=== PATIENT | female | born 1990 | race Hispanic/Latino ===

== ENCOUNTER 2018-01-28 22:02 | Outpatient (CLI) | payer OTHER ==
[2018-01-28] MEDS ORDERED: LACTATED RINGERS 500 ML IV ONE (22:23)
[2018-01-28] MEDS ORDERED: BRETHINE ONE (23:17)
[2018-01-29 00:20] VITALS: BP 115/68
== END 2018-01-29 01:15 | disposition home or self-care (01) ==
LOC: TRG 22:02
PROVIDERS: ATTEND Obstetrics & Gynecology
DX: O47.03 False labor before 37 completed weeks of gestation, third trimester (principal); O62.8 Other abnormalities of forces of labor; Z3A.33 33 weeks gestation of pregnancy
CPT/HCPCS: 59025; 96372; J3105; J7120; 96360

== ENCOUNTER 2018-02-11 20:18 | Inpatient (IN) | payer OTHER ==
[2018-02-11] MEDS ORDERED: LACTATED RINGERS 1,000 ML ONE (20:54)
[2018-02-11] MEDS ORDERED: XYLOCAINE 2% INFILTRATI ONE (22:08)
[2018-02-11] MEDS ORDERED: MINERAL OIL PO PRN (22:08)
[2018-02-11] MEDS ORDERED: BRETHINE SUB-Q PRN (22:08)
[2018-02-11] MEDS ORDERED: SUBLIMAZE IV PRN (22:08)
[2018-02-11] MEDS ORDERED: ZOFRAN IV PRN (22:08)
--- NOTE | 2018-02-11 22:27 | History and Physical Report ---
History of Present Illness Date of examination: 02/11/18 (PTL @ 35.4 weeks) History of present illness: EDC Confirmation: 03/15/2018 Gestational Age: 7 1/7 weeks Past History : 3 Term Births: 2 Living Children: 2 Para: 2 # 1 Delivery date: 06/17/2011 Weeks Gestation: 38 Delivery type: Vaginal Anesthesia type: epidural Delivery location: [facility] Infant Sex: female weight: 8.25 Comments: none # 2 Delivery date: 02/27/2013 Weeks Gestation: 36 Delivery type: Vaginal Anesthesia type: epidural Delivery location: [facility] Infant Sex: female weight: 611 Comments: Past Medical History: Reviewed history from 11/30/2016 and no changes required: Negative Past Medical History MVP Anxiety Past Surgical History: Reviewed history from 11/03/2010 and no changes required: positive, [id number],10yo,14yo Past Medical History Abnormal PAP: negative ARSENIO Exposure: negative Infertility: negative Uterine Anomaly: negative Uterine Surgery (not C/S): negative Other Gynecologic Problems: negative Social Hx: Patient is Smoking History: Patient has never smoked. Infection History Hx of STD: none Varicella/Chicken Pox Status: Previous Disease Genetic History Congenital Heart Defect: Mom: no Dad: no Gudelia Disease: Mom: no Dad: no Thalassemia Mom: no Dad: no Neural Tube Defect Mom: no Dad: no Down's Syndrome Mom: no Dad: no Samuel-Sachs Mom: no Dad: no Sickle Cell Disease/Trait Mom: no Dad: no Hemophilia Mom: no Dad: no Muscular Dystrophy Mom: no Dad: no Cystic Fibrosis Mom: no Dad: no [place] Chorea Mom: no Dad: no Mental Retardation Mom: no Dad: no Fragile X Mom: no Dad: no Other Genetic/Chromosomal Disorder Mom: no Dad: no Child w/other defect Mom: no Dad: no Other: brother had cleft palate Enviromental Exposures Xray Exposure: no Medication, drug, or alcohol use since LMP: no Chemical/Other Exposure: no Exposure to Cat Liter: no Hx of Parvovirus (Fifth Disease): no Occupational Exposure to Children: none Active Medications (reviewed today): None Current Allergies (reviewed today): CODEINE (Critical) Past History - Obstetrical History Expected Date of Delivery: 03/15/18 Actual Gestation: 35 Week(s) 3 Day(s) : 3 Para: 2 Hx # Term Pregnancies: 1 Number of Pregnancies: 1 Spontaneous Abortions: 0 Induced : 0 Number of Living Children: 2 Medications and Allergies Allergies Allergy/AdvReac Type Severity Reaction Status Date / Time codeine AdvReac Unknown Verified 01/28/18 22:23 Home Medications Medication Instructions Recorded Confirmed Last Taken Type No Known Home Medications [No 02/28/13 02/28/13 Unknown History Reported Home Medications] Active Meds: Active Medications Betamethasone Acet/Betameth SodPhos (Celestone Soluspan) 12 mg IM Q24H HOLLI Stop: 02/12/18 23:01 Ephedrine Sulfate (Ephedrine Sulfate) 10 mg IV Q2M PRN PRN Reason: Hypotension Fentanyl (Sublimaze) 100 mcg IV Q2H PRN PRN Reason: Labor Pain Lactated Ringer's (Lactated Ringers) 1,000 mls @ 125 mls/hr IV DIRECT HOLLI Oxytocin/Sodium Chloride (Pitocin/Ns 20 Unit/1000ml Drip) 20 units in 1,000 mls @ 125 mls/hr IV DIRECT HOLLI Mineral Oil (Mineral Oil) 30 ml PO QHS PRN PRN Reason: Constipation Ondansetron HCl (Zofran) 4 mg IV Q8H PRN PRN Reason: Nausea And Vomiting Terbutaline Sulfate (Brethine) 0.25 mg SUB-Q ONCE PRN PRN Reason: Hyperstimulation/Hypertonicity - Vital Signs Vital signs: Vital Signs Pulse BP 97 H 130/79 02/11/18 20:33 02/11/18 20:33 Temp Pulse Resp BP Pulse Ox 88 129/78 02/11/18 22:15 02/11/18 22:15 - Physical Exam Breasts: Positive: deferred Cardiovascular: Regular rate, Normal S1, Normal S2 Lungs: Positive: Normal air movement Abdomen: Positive: normal appearance, soft, normal bowel sounds. Negative: distention, tenderness Genitourinary (Female): Positive: normal external genitalia Vulva: both: normal Vagina: Positive: normal moisture. Negative: discharge Cervix: Negative: lesion, discharge Uterus: Positive: normal size, normal contour Adnexa: both: normal Anus/Rectum: Positive: normal perianal skin, heme negative. Negative: rectal mass, hemorrhoids Extremities: Positive: normal Deep Tendon Reflex Grade: Normal +2 - Obstetrical FHR: category 1 Uterine Contraction Monitor Mode: External Cervical Dilatation: 3.5 (cervical chg from arrival) Cervical Effacement Percentage: 70 station: -2 Uterine Contraction Frequency (min): q1-4 Uterine Contraction Pattern: Regular Uterine Tone Measurement Phase: Resting Uterine Contraction Intensity: Moderate Results All other labs normal. Strep Gp B REHAN Negative HBsAg Screen Negative Negative *1 RPR Non Reactive Non Reactive *2 Rubella Antibodies, IgG 8.13 index Immune >0.99 *3 Non-immune <0.90 Equivocal 0.90 - 0.99 Immune >0.99 ABO Grouping B *4 Rh Factor Positive *5 Please note: Prior records for this patient's ABO / Rh type are not available for additional verification. Antibody Screen Negative Negative *6 WBC 7.8 x10E3/uL 3.4-10.8 *7 RBC 4.22 x10E6/uL 3.77-5.28 *8 Hemoglobin 12.5 g/dL 11.1-15.9 *9 Hematocrit 37.7 % 34.0-46.6 *10 MCV 89 fL 79-97 *11 MCH 29.6 pg 26.6-33.0 *12 MCHC 33.2 g/dL 31.5-35.7 *13 RDW 14.5 % 12.3-15.4 *14 Platelets 186 x10E3/uL 150-379 *15 Neutrophils 70 % Not Estab. *16 Lymphs 24 % Not Estab. *17 Monocytes 5 % Not Estab. *18 Eos 1 % Not Estab. *19 Basos 0 % Not Estab. *20 ! Immature Cells <No Reported Value> *21 Neutrophils (Absolute) 5.4 x10E3/uL 1.4-7.0 *22 Lymphs (Absolute) 1.9 x10E3/uL 0.7-3.1 *23 Monocytes(Absolute) 0.4 x10E3/uL 0.1-0.9 *24 Eos (Absolute) 0.0 x10E3/uL 0.0-0.4 *25 Baso (Absolute) 0.0 x10E3/uL 0.0-0.2 *26 ! Immature Granulocytes 0 % Not Estab. *27 ! Immature Grans (Abs) 0.0 x10E3/uL 0.0-0.1 *28 ! NRBC <No Reported Value> *29 Hematology Comments: <No Reported Value> *30 Tests: (2) Panel 935177 (060105) HIV Screen 4th Generation wRfx Non Reactive Non Reactive *31 Tests: (3) HCV Ab w/Rflx to Verification (380393) ! HCV Ab <0.1 s/co ratio 0.0-0.9 *32 Tests: (4) Comment: ([id number]) ! Comment: SPRCS *33 Non reactive HCV antibody screen is consistent with no HCV infection, unless recent infection is suspected or other evidence exists to indicate HCV infection. Tests: (5) Urine Culture, Routine (669275) Urine Culture, Routine Final report *34 Tests: (6) Result ([id number]) ! Result 1 "Result Below..." *35 RESULT: Lactobacillus species 25,000-50,000 colony forming units per mL Assessment and Plan - Patient Problems (1) labor Onset Date: ~02/11/18 Current Visit: Yes Status: Acute Qualifiers: labor trimester: third trimester Fetus number: single or unspecified fetus Plan to address problem: 27yo @ 35w3d in active labor Cervical change from admission from 2cm to 3-4 cm. Ctx Q 1-4 min GBS negative BMZ ordered NICU notified aware of admission Orders in EMR
[2018-02-11] MEDS ORDERED: CELESTONE SOLUSPAN IM SCH (23:00)
[2018-02-11] MEDS ORDERED: LACTATED RINGERS 1,000 ML IV SCH (23:00)
[2018-02-11] MEDS ORDERED: PITOCin/NS 20 UNIT/1000ML DRIP 20 UNITS/1,000 ML BAG IV SCH (23:00)
[2018-02-12] MEDS ORDERED: AMBIEN PO PRN (00:13)
--- NOTE | 2018-02-12 00:16 | Progress Note ---
Assessment and Plan Pt states ctx are less freq and decreasing intensity Cat 1 strip Reactive NST Will continue IVFs, encourage po fluids, Ambien to rest and re-eval in AM or as needed. Pt agrees with POC All questions addressed. - Patient Problems (1) labor Onset Date: ~02/11/18 Current Visit: Yes Status: Acute Qualifiers: labor trimester: third trimester Fetus number: single or unspecified fetus Subjective - Subjective Date of service: 02/12/18 (pt states ctx are decreasing frequency) Principal diagnosis: IUP @ 35w4d in PTL Interval history: EDC Confirmation: 03/15/2018 Gestational Age: 7 1/7 weeks Past History : 3 Term Births: 2 Living Children: 2 Para: 2 # 1 Delivery date: 06/17/2011 Weeks Gestation: 38 Delivery type: Vaginal Anesthesia type: epidural Delivery location: [facility] Sex: female weight: 8.25 Comments: none # 2 Delivery date: 02/27/2013 Weeks Gestation: 36 Delivery type: Vaginal Anesthesia type: epidural Delivery location: [facility] Infant Sex: female weight: 611 Comments: Past Medical History: Reviewed history from 11/30/2016 and no changes required: Negative Past Medical History MVP Anxiety Past Surgical History: Reviewed history from 11/03/2010 and no changes required: positive, [id number],10yo,14yo Past Medical History Abnormal PAP: negative ARSENIO Exposure: negative Infertility: negative Uterine Anomaly: negative Uterine Surgery (not C/S): negative Other Gynecologic Problems: negative Social Hx: Patient is Smoking History: Patient has never smoked. Infection History Hx of STD: none Varicella/Chicken Pox Status: Previous Disease Genetic History Congenital Heart Defect: Mom: no Dad: no Gudelia Disease: Mom: no Dad: no Thalassemia Mom: no Dad: no Neural Tube Defect Mom: no Dad: no Down's Syndrome Mom: no Dad: no Samuel-Sachs Mom: no Dad: no Sickle Cell Disease/Trait Mom: no Dad: no Hemophilia Mom: no Dad: no Muscular Dystrophy Mom: no Dad: no Cystic Fibrosis Mom: no Dad: no [place] Chorea Mom: no Dad: no Mental Retardation Mom: no Dad: no Fragile X Mom: no Dad: no Other Genetic/Chromosomal Disorder Mom: no Dad: no Child w/other defect Mom: no Dad: no Other: brother had cleft palate Enviromental Exposures Xray Exposure: no Medication, drug, or alcohol use since LMP: no Chemical/Other Exposure: no Exposure to Cat Liter: no Hx of Parvovirus (Fifth Disease): no Occupational Exposure to Children: none Active Medications (reviewed today): None Current Allergies (reviewed today): CODEINE (Critical) Patient reports: movement normal Objective - Vital Signs Vital Signs: Vital Signs - 12hr 02/11/18 02/11/18 02/11/18 20:33 20:39 20:43 Temperature Pulse Rate 97 H 109 H 109 H Respiratory Rate Blood Pressure 130/79 113/75 108/70 Blood Pressure [Right] 02/11/18 02/11/18 02/11/18 20:48 20:54 20:58 Temperature Pulse Rate 96 H 88 98 H Respiratory Rate Blood Pressure 123/73 114/71 106/68 Blood Pressure [Right] 02/11/18 02/11/18 02/11/18 21:03 21:09 21:14 Temperature Pulse Rate 98 H 89 103 H Respiratory Rate Blood Pressure 106/67 108/69 113/56 Blood Pressure [Right] 02/11/18 02/11/18 02/11/18 21:23 21:28 21:33 Temperature Pulse Rate 85 83 84 Respiratory Rate Blood Pressure 119/75 115/75 113/73 Blood Pressure [Right] 02/11/18 02/11/18 02/11/18 21:39 21:44 21:48 Temperature Pulse Rate 85 81 93 H Respiratory Rate Blood Pressure 123/75 120/76 120/79 Blood Pressure [Right] 02/11/18 02/11/18 02/11/18 21:53 21:59 22:04 Temperature Pulse Rate 80 79 88 Respiratory Rate Blood Pressure 129/75 117/71 121/81 Blood Pressure [Right] 02/11/18 02/11/18 02/11/18 22:08 22:15 23:27 Temperature 97.4 F L Pulse Rate 90 88 91 H Respiratory 18 Rate Blood Pressure 148/83 129/78 110/71 Blood Pressure 110/71 [Right] - Exam Breasts: deferred Cardiovascular: Regular rate Lungs: Normal air movement Abdomen: Present: normal appearance, soft. Absent: distention, tenderness Uterus: Present: normal FHR: auscultation normal, category 1 Uterine Contraction Monitor Mode: External Cervical Dilatation: 3 Cervical Effacement Percentage: 70 station: -2 Uterine Contraction Pattern: Irregular Uterine Tone Measurement Phase: Resting Uterine Contraction Intensity: Mild Extremities: normal Deep Tendon Reflex Grade: Normal +2
[2018-02-12 00:27] LABS: Hematocrit 28.6 % (30.3-42.9); Hemoglobin 9.6 gm/dl (10.1-14.3); Mean Corpuscular HGB Conc 34 % (30-34); Mean Corpuscular Volume 84 fl (79-97); Platelet Count 261 K/mm3 (140-440); Red Blood Count 3.41 M/mm3 (3.65-5.03)
[2018-02-12] MEDS ORDERED: LACTATED RINGERS 500 ML IV ONE (05:23)
--- NOTE | 2018-02-12 06:46 | Progress Note ---
Assessment and Plan Pt states she did sleep some VSS Ctx very irregular FHR Cat 1 SVE no chg Will remain in L&D and receive her second BMZ tonight then will reassess for d/c Regular diet, AM care, may ambulate if desires. pt agrees with POC made aware. - Patient Problems (1) labor Onset Date: ~02/11/18 Current Visit: Yes Status: Acute Qualifiers: labor trimester: third trimester Fetus number: single or unspecified fetus Subjective - Subjective Date of service: 02/12/18 (ctx less freq and decreased intensity) Principal diagnosis: IUP @ 35w4d in PTL Interval history: EDC Confirmation: 03/15/2018 Gestational Age: 7 1/7 weeks Past History : 3 Term Births: 2 Living Children: 2 Para: 2 # 1 Delivery date: 06/17/2011 Weeks Gestation: 38 Delivery type: Vaginal Anesthesia type: epidural Delivery location: [facility] Sex: female weight: 8.25 Comments: none # 2 Delivery date: 02/27/2013 Weeks Gestation: 36 Delivery type: Vaginal Anesthesia type: epidural Delivery location: [facility] Sex: female weight: 611 Comments: Past Medical History: Reviewed history from 11/30/2016 and no changes required: Negative Past Medical History MVP Anxiety Past Surgical History: Reviewed history from 11/03/2010 and no changes required: positive, [id number],10yo,14yo Past Medical History Abnormal PAP: negative ARSENIO Exposure: negative Infertility: negative Uterine Anomaly: negative Uterine Surgery (not C/S): negative Other Gynecologic Problems: negative Social Hx: Patient is Smoking History: Patient has never smoked. Infection History Hx of STD: none Varicella/Chicken Pox Status: Previous Disease Genetic History Congenital Heart Defect: Mom: no Dad: no Gudelia Disease: Mom: no Dad: no Thalassemia Mom: no Dad: no Neural Tube Defect Mom: no Dad: no Down's Syndrome Mom: no Dad: no Samuel-Sachs Mom: no Dad: no Sickle Cell Disease/Trait Mom: no Dad: no Hemophilia Mom: no Dad: no Muscular Dystrophy Mom: no Dad: no Cystic Fibrosis Mom: no Dad: no [place] Chorea Mom: no Dad: no Mental Retardation Mom: no Dad: no Fragile X Mom: no Dad: no Other Genetic/Chromosomal Disorder Mom: no Dad: no Child w/other defect Mom: no Dad: no Other: brother had cleft palate Enviromental Exposures Xray Exposure: no Medication, drug, or alcohol use since LMP: no Chemical/Other Exposure: no Exposure to Cat Liter: no Hx of Parvovirus (Fifth Disease): no Occupational Exposure to Children: none Active Medications (reviewed today): None Current Allergies (reviewed today): CODEINE (Critical) Patient reports: movement normal Objective - Vital Signs Vital Signs: Vital Signs - 12hr 02/11/18 02/11/18 02/11/18 20:33 20:39 20:43 Temperature Pulse Rate 97 H 109 H 109 H Respiratory Rate Blood Pressure 130/79 113/75 108/70 Blood Pressure [Right] 02/11/18 02/11/18 02/11/18 20:48 20:54 20:58 Temperature Pulse Rate 96 H 88 98 H Respiratory Rate Blood Pressure 123/73 114/71 106/68 Blood Pressure [Right] 02/11/18 02/11/18 02/11/18 21:03 21:09 21:14 Temperature Pulse Rate 98 H 89 103 H Respiratory Rate Blood Pressure 106/67 108/69 113/56 Blood Pressure [Right] 02/11/18 02/11/18 02/11/18 21:23 21:28 21:33 Temperature Pulse Rate 85 83 84 Respiratory Rate Blood Pressure 119/75 115/75 113/73 Blood Pressure [Right] 02/11/18 02/11/18 02/11/18 21:39 21:44 21:48 Temperature Pulse Rate 85 81 93 H Respiratory Rate Blood Pressure 123/75 120/76 120/79 Blood Pressure [Right] 02/11/18 02/11/18 02/11/18 21:53 21:59 22:04 Temperature Pulse Rate 80 79 88 Respiratory Rate Blood Pressure 129/75 117/71 121/81 Blood Pressure [Right] 02/11/18 02/11/18 02/11/18 22:08 22:15 23:27 Temperature 97.4 F L Pulse Rate 90 88 91 H Respiratory 18 Rate Blood Pressure 148/83 129/78 110/71 Blood Pressure 110/71 [Right] 02/12/18 02/12/18 04:11 06:07 Temperature Pulse Rate 89 85 Respiratory Rate Blood Pressure 113/60 110/70 Blood Pressure [Right] - Exam Breasts: deferred Cardiovascular: Regular rate Lungs: Normal air movement Abdomen: Present: normal appearance, soft. Absent: distention, tenderness Uterus: Present: normal FHR: auscultation normal, category 1 Uterine Contraction Monitor Mode: External Cervical Dilatation: 3 Cervical Effacement Percentage: 50 station: -3 Uterine Contraction Pattern: Irregular Uterine Tone Measurement Phase: Resting Uterine Contraction Intensity: Mild Extremities: normal Deep Tendon Reflex Grade: Normal +2 - Labs Labs: Abnormal Labs 02/11/18 23:44 WBC 13.8 H RBC 3.41 L Hgb 9.6 L Hct 28.6 L RDW 13.0 L Laboratory Results - last 24 hr 02/11/18 02/11/18 23:44 23:50 WBC 13.8 H RBC 3.41 L Hgb 9.6 L Hct 28.6 L MCV 84 MCH 28 MCHC 34 RDW 13.0 L Plt Count 261 Blood Type B POSITIVE Antibody Screen Negative
[2018-02-12] MEDS ORDERED: PEPCID IV SCH (15:00)
--- NOTE | 2018-02-12 18:17 | Discharge Summary ---
Providers - Providers Date of Admission: 02/11/18 23:01 Date of discharge: 02/12/18 (pt to be d/c after 2nd dose of BMZ) Attending physician: EVELINE TRAN Primary care physician: [facility] Hospitalization Reason for admission: labor Hospital course: After initial cervical chg There was no further dilation. Pt rested overnight Will complete BMZ @ 2000 and will d/c @ 2100 ctx and minimal cervical chg that stopped. Pt w/o complaint VSS FHR Cat 1 Reactive NST Ctx are very irregular, mild. Pt states she no longer has back pain. Will d/c home Taken Out of work Pt has appointment Tuesday02-20-18 She does have a f/u with AMFM Will continue to receive 17-OHP IUP @ 35w4d Completed BMZ prior to d/c Pelvic rest, hydration. All questions addressed Condition at discharge: Good Disposition: DC- TO HOME OR SELFCARE - Discharge Diagnoses (1) labor Status: Acute Qualifiers: labor trimester: third trimester Fetus number: single or unspecified fetus Comment: Keep next scheduled PN vist and appt with AMFM Plan - Provider Discharge Summary Activity: routine, no sex for 6 weeks, no heavy lifting 4 weeks, no strenuous exercise Diet: routine Instructions: routine Additional instructions: [] Smoking cessation referral if applicable(refer to patient education folder for contact #) [] Refer to [facility] Booklet Call your doctor immediately for: * Fever > 100.5 * Heavy vaginal bleeding ( >1 pad per hour) * Severe persistent headache * Shortness of breath * Reddened, hot, painful area to leg or breast * Drainage or odor from incision. * Keep incision clean and dry at all times and follow doctor's instructions regarding bathing/showering - Follow up plan Follow up: PRIMARY CARE, [Primary Care Provider] - 7 Days ALBERTO ALLAN CNM [Advanced Practice Nurse] - 02/20/18 (keep appt as scheduled. Call with contractions, leaking of fluid, bleeding, decrease movement. Call with any concerns.)
[2018-02-12 20:17] VITALS: BP 109/64
== END 2018-02-12 20:23 | disposition home or self-care (01) | DRG 833 ==
LOC: TRG 20:18 → LD 23:01
PROVIDERS: ADMIT Obstetrics & Gynecology; ATTEND Obstetrics & Gynecology
DX: O60.03 Preterm labor without delivery, third trimester (principal); Z3A.35 35 weeks gestation of pregnancy; Z88.5 Allergy status to narcotic agent; O99.343 Other mental disorders complicating pregnancy, third trimester; F41.9 Anxiety disorder, unspecified; O76 Abnormality in fetal heart rate and rhythm complicating labor and delivery
CPT/HCPCS: 36415; 85027; 86592; 86850; 86900; 86901; G0378; J0702; J7120

== ENCOUNTER 2018-03-09 06:05 | Inpatient (IN) | payer OTHER ==
[2018-03-09] MEDS ORDERED: ZOFRAN IV PRN (06:23)
[2018-03-09] MEDS ORDERED: BRETHINE SUB-Q PRN (06:23)
[2018-03-09] MEDS ORDERED: XYLOCAINE 2% INFILTRATI ONE (06:23)
[2018-03-09] MEDS ORDERED: MINERAL OIL PO PRN (06:23)
[2018-03-09] MEDS ORDERED: SUBLIMAZE IV PRN (06:23)
--- NOTE | 2018-03-09 06:32 | History and Physical Report ---
History of Present Illness Date of examination: 03/09/18 (active labor SROM @ term) History of present illness: EDC Confirmation: 03/15/2018 Gestational Age: 7 1/7 weeks Past History : 3 Term Births: 2 Living Children: 2 Para: 2 # 1 Delivery date: 06/17/2011 Weeks Gestation: 38 Delivery type: Vaginal Anesthesia type: epidural Delivery location: [facility] Sex: female weight: 8.25 Comments: none # 2 Delivery date: 02/27/2013 Weeks Gestation: 36 Delivery type: Vaginal Anesthesia type: epidural Delivery location: [facility] Infant Sex: female weight: 611 Comments: Past Medical History: Reviewed history from 11/30/2016 and no changes required: Negative Past Medical History MVP Anxiety Past Surgical History: Reviewed history from 11/03/2010 and no changes required: positive, [id number],10yo,14yo Past Medical History Abnormal PAP: negative ARSENIO Exposure: negative Infertility: negative Uterine Anomaly: negative Uterine Surgery (not C/S): negative Other Gynecologic Problems: negative Social Hx: Patient is Smoking History: Patient has never smoked. Infection History Hx of STD: none Varicella/Chicken Pox Status: Previous Disease Genetic History Congenital Heart Defect: Mom: no Dad: no Gudelia Disease: Mom: no Dad: no Thalassemia Mom: no Dad: no Neural Tube Defect Mom: no Dad: no Down's Syndrome Mom: no Dad: no Samuel-Sachs Mom: no Dad: no Sickle Cell Disease/Trait Mom: no Dad: no Hemophilia Mom: no Dad: no Muscular Dystrophy Mom: no Dad: no Cystic Fibrosis Mom: no Dad: no [place] Chorea Mom: no Dad: no Mental Retardation Mom: no Dad: no Fragile X Mom: no Dad: no Other Genetic/Chromosomal Disorder Mom: no Dad: no Child w/other defect Mom: no Dad: no Other: brother had cleft palate Enviromental Exposures Xray Exposure: no Medication, drug, or alcohol use since LMP: no Chemical/Other Exposure: no Exposure to Cat Liter: no Hx of Parvovirus (Fifth Disease): no Occupational Exposure to Children: none Active Medications (reviewed today): None Current Allergies (reviewed today): CODEINE (Critical) Past History - Obstetrical History Expected Date of Delivery: 03/15/18 Actual Gestation: 39 Week(s) 1 Day(s) : 3 Para: 2 Hx # Term Pregnancies: 1 Number of Pregnancies: 1 Spontaneous Abortions: 0 Induced : 0 Number of Living Children: 2 Medications and Allergies Allergies Allergy/AdvReac Type Severity Reaction Status Date / Time No Known Allergies Allergy Unverified 03/09/18 06:23 Home Medications Medication Instructions Recorded Confirmed Last Taken Type Vit-Fe Fumar-FA [ 1 tab PO QDAY 03/09/18 03/09/18 03/08/18 History Vitamin] Active Meds: Active Medications Ephedrine Sulfate (Ephedrine Sulfate) 10 mg IV Q2M PRN PRN Reason: Hypotension Fentanyl (Sublimaze) 100 mcg IV Q2H PRN PRN Reason: Labor Pain Lactated Ringer's (Lactated Ringers) 1,000 mls @ 125 mls/hr IV DIRECT HOLLI Lidocaine (Xylocaine 2%) 20 ml INFILTRATI ONCE ONE Stop: 03/09/18 06:24 - Physical Exam Breasts: Positive: deferred Cardiovascular: Regular rate, Normal S1, Normal S2 Lungs: Positive: Normal air movement Abdomen: Positive: normal appearance, soft, normal bowel sounds. Negative: distention, tenderness Genitourinary (Female): Positive: normal external genitalia Vulva: both: normal Vagina: Positive: normal moisture. Negative: discharge Cervix: Negative: lesion, discharge Uterus: Positive: normal size, normal contour Adnexa: both: normal Anus/Rectum: Positive: normal perianal skin, heme negative. Negative: rectal mass, hemorrhoids Extremities: Positive: normal Deep Tendon Reflex Grade: Normal +2 - Obstetrical FHR: category 1 Uterine Contraction Monitor Mode: External Cervical Dilatation: 6 (clear fluid) Cervical Effacement Percentage: 70 station: -1 Uterine Contraction Pattern: Irregular Uterine Tone Measurement Phase: Resting Uterine Contraction Intensity: Moderate Results All other labs normal. GBS Negative HBsAg Screen Negative Negative *1 RPR Non Reactive Non Reactive *2 Rubella Antibodies, IgG 8.13 index Immune >0.99 *3 Non-immune <0.90 Equivocal 0.90 - 0.99 Immune >0.99 ABO Grouping B *4 Rh Factor Positive *5 Please note: Prior records for this patient's ABO / Rh type are not available for additional verification. Antibody Screen Negative Negative *6 WBC 7.8 x10E3/uL 3.4-10.8 *7 RBC 4.22 x10E6/uL 3.77-5.28 *8 Hemoglobin 12.5 g/dL 11.1-15.9 *9 Hematocrit 37.7 % 34.0-46.6 *10 MCV 89 fL 79-97 *11 MCH 29.6 pg 26.6-33.0 *12 MCHC 33.2 g/dL 31.5-35.7 *13 RDW 14.5 % 12.3-15.4 *14 Platelets 186 x10E3/uL 150-379 *15 Neutrophils 70 % Not Estab. *16 Lymphs 24 % Not Estab. *17 Monocytes 5 % Not Estab. *18 Eos 1 % Not Estab. *19 Basos 0 % Not Estab. *20 ! Immature Cells <No Reported Value> *21 Neutrophils (Absolute) 5.4 x10E3/uL 1.4-7.0 *22 Lymphs (Absolute) 1.9 x10E3/uL 0.7-3.1 *23 Monocytes(Absolute) 0.4 x10E3/uL 0.1-0.9 *24 Eos (Absolute) 0.0 x10E3/uL 0.0-0.4 *25 Baso (Absolute) 0.0 x10E3/uL 0.0-0.2 *26 ! Immature Granulocytes 0 % Not Estab. *27 ! Immature Grans (Abs) 0.0 x10E3/uL 0.0-0.1 *28 ! NRBC <No Reported Value> *29 Hematology Comments: <No Reported Value> *30 Tests: (2) Panel 705381 ([id number]) HIV Screen 4th Generation wRfx Non Reactive Non Reactive *31 Tests: (3) HCV Ab w/Rflx to Verification ([id number]) ! HCV Ab <0.1 s/co ratio 0.0-0.9 *32 Tests: (4) Comment: ([id number]) ! Comment: SPRCS *33 Non reactive HCV antibody screen is consistent with no HCV infection, unless recent infection is suspected or other evidence exists to indicate HCV infection. Tests: (5) Urine Culture, Routine ([id number]) Urine Culture, Routine Final report *34 Tests: (6) Result ([id number]) ! Result 1 "Result Below..." *35 RESULT: Lactobacillus species 25,000-50,000 colony forming units per mL Assessment and Plan 27yo @ 39 weeks active labor GBS negative All orders in EMR
[2018-03-09] MEDS ORDERED: PITOCin/NS 20 UNIT/1000ML DRIP 20 UNITS/1,000 ML BAG IV SCH (07:00)
[2018-03-09] MEDS ORDERED: PITOCin/NS 30 UNIT/500ML 30 UNITS/500 ML BAG IV SCH (07:00)
[2018-03-09 07:48] LABS: Hematocrit 31.5 % (30.3-42.9); Hemoglobin 10.1 gm/dl (10.1-14.3); Mean Corpuscular HGB Conc 32 % (30-34); Mean Corpuscular Volume 81 fl (79-97); Platelet Count 280 K/mm3 (140-440); Red Blood Count 3.91 M/mm3 (3.65-5.03)
[2018-03-09] MEDS: LACTATED RINGERS 1,000 ML IV SCH ×2 (08:20→09:05)
[2018-03-09] MEDS ORDERED: MARCAINE 0.5% INFILTRATI ONE (09:18)
[2018-03-09] MEDS ORDERED: fentaNYL-BUPIV 2 MCG/ML-0.125% 200 MCG/100 ML BAG EPIDURAL ONE (09:49)
[2018-03-09] MEDS ORDERED: NARCAN 2 MG/2 ML IV PRN (09:53)
--- NOTE | 2018-03-09 09:57 | Anesthesia Consultation ---
Anesthesia Consult and Med Hx Date of service: 03/09/18 - Airway Anesthetic Teeth Evaluation: Good ROM Head & Neck: Adequate Mental/Hyoid Distance: Adequate Mallampati Class: Class II Intubation Access Assessment: Good - Pulmonary Exam CTA: Yes - Pulmonary Hx Smoking: No Hx Asthma: No COPD: No Hx Pneumonia: No - Cardiovascular System Hx Hypertension: No Hx Cardia Arrhythmia: No - Central Nervous System Hx Neuromuscular Disorder: No Hx Seizures: No Hx Psychiatric Problems: No - Endocrine Hx Renal Disease: No Hx End Stage Renal Disease: No Hx Hypothyroidism: No Hx Hyperthyroidism: No - Hematic Hx Anemia: No Hx Sickle Cell Disease: No - Other Systems Hx Alcohol Use: No
[2018-03-09] MEDS ORDERED: fentaNYL-BUPIV 2 MCG/ML-0.125% 200 MCG/100 ML BAG EPIDURAL SCH (10:00)
[2018-03-09] MEDS ORDERED: NORCO 5/325 PO PRN (11:56)
[2018-03-09] MEDS ORDERED: LANSINOH TP PRN (11:56)
[2018-03-09] MEDS ORDERED: DULCOLAX PR PRN (11:56)
[2018-03-09] MEDS ORDERED: MILK OF MAGNESIA PO PRN (11:56)
[2018-03-09] MEDS ORDERED: TUCKS PAD TP PRN (11:56)
[2018-03-09] MEDS ORDERED: TYLENOL PO PRN (11:56)
[2018-03-09] MEDS ORDERED: PHENERGAN PO PRN (11:56)
[2018-03-09] MEDS ORDERED: BENADRYL PO PRN (11:56)
[2018-03-09] MEDS ORDERED: SODIUM CHLORIDE FLUSH SYRINGE 10 ML IV NR (12:00)
--- NOTE | 2018-03-09 12:35 | Procedure Note ---
OB Delivery Note - Delivery Date of Delivery: 03/09/18 Cv/Cvn Cv Tsc System Operator: ALBERTO ALLAN Estimated blood loss: 300cc - Vaginal Delivery presentation: vertex Delivery position: OA Intrapartum events: none Delivery induction: none Delivery augmentation: rupture of membranes Delivery monitor: external FHT, external uterine Route of delivery: Delivery placenta: spontaneous Delivery cord: 3 umbilical vessels Episiotomy: none Delivery laceration: none Anesthesia: epidural Delivery comments: live born male over intact perineum Baby to mom's abdomen skin to skin Placenta and membrane delivered complete and intact, 3 vessel cord. Pit IVFs 8/9, EBL 300, Wgt 9-5 Mom and baby remain LDR stable - Infant A at 1 minute: 8 at 5 minutes: 9 Gender: Male (wgt 9-5)
[2018-03-09] MEDS: IBUPROFEN PO SCH ×2 (16:42→23:49)
[2018-03-09] MEDS ORDERED: COLACE PO SCH (22:00)
[2018-03-09 23:12] LABS: Hematocrit 29.4 % (30.3-42.9); Hemoglobin 9.4 gm/dl (10.1-14.3)
--- NOTE | 2018-03-10 08:11 | Discharge Summary ---
Providers - Providers Date of Admission: 03/09/18 07:49 Date of discharge: 03/10/18 (desires d/c home today) Attending physician: EVELINE TRAN Primary care physician: EVELINE TRAN Hospitalization Reason for admission: Labor Condition: Good Pertinent studies: post delivery H&H 9.4/29.4 Procedures: Hospital course: uncomplicated and course Disposition: DC- TO HOME OR SELFCARE - Discharge Diagnoses (1) Normal spontaneous vaginal delivery Status: Acute Core Measure Documentation - Palliative Care Palliative Care/ Comfort Measures: Not Applicable - Core Measures Any of the following diagnoses?: none Exam - Constitutional Vitals: Temp Pulse Resp BP Pulse Ox 98.5 F 87 18 108/74 96 03/10/18 00:59 03/10/18 00:59 03/10/18 00:59 03/10/18 00:59 03/10/18 00:59 General appearance: Present: no acute distress, well-nourished - EENT Eyes: Present: PERRL ENT: hearing intact, clear oral mucosa - Neck Neck: Present: supple, normal ROM - Respiratory Respiratory effort: normal Respiratory: bilateral: CTA - Cardiovascular Heart Sounds: Present: S1 & S2. Absent: rub, click - Extremities Extremities: pulses symmetrical, No edema Peripheral Pulses: within normal limits - Abdominal General gastrointestinal: Present: soft, non-tender, non-distended, normal bowel sounds Female genitourinary: Present: normal - Integumentary Integumentary: Present: clear, warm, dry - Musculoskeletal Musculoskeletal: gait normal, strength equal bilaterally - Psychiatric Psychiatric: appropriate mood/affect, intact judgment & insight - Neurologic Neurologic: CNII-XII intact, moves all extremities - Additional findings Additional findings: lochia scant, fundus firm, breast and bottle feeding Plan Activity: no restrictions Follow up with: EVELINE TRAN MD [Primary Care Provider] - 7 Days (Congratulations! Please call [phone] to schedule your son's circumcision in 1 week and your visit in 4 weeks. bring EMLA cream to your son's appointment and await further teaching. Call for any questions or concerns. ) Prescriptions: Ibuprofen [Motrin 800 MG tab] 800 mg PO Q8HR PRN #30 tablet PRN Reason: Pain Lidocain2.5%/Prilocai2.5% [Emla] 5 gm TP ONCE PRN #1 tube PRN Reason: Pain
[2018-03-10] MEDS ORDERED: PRENATAL VITAMIN PO SCH (10:00)
[2018-03-10] MEDS ORDERED: BOOSTRIX IM ONE (11:56)
[2018-03-10] MEDS ORDERED: M-M-R II VACCINE SUB-Q ONE (11:56)
[2018-03-10] MEDS: IBUPROFEN PO SCH (12:12)
[2018-03-12 11:49] VITALS: BP 120/84
== END 2018-03-10 14:00 | disposition home or self-care (01) | DRG 806 ==
LOC: TRG 06:05 → LD 07:49 → TRG 07:49 → LD 11:45 → UNDOADMIN 11:46 → OB 13:36
PROVIDERS: ADMIT Obstetrics & Gynecology; ATTEND Obstetrics & Gynecology
PROC: 10E0XZZ Delivery of Products of Conception, External Approach (ICD-10-PCS; principal; 2018-03-09)
PROC: 3E0R3BZ Introduction of Anesthetic Agent into Spinal Canal, Percutaneous Approach (ICD-10-PCS; 2018-03-09)
PROC: 00HU33Z Insertion of Infusion Device into Spinal Canal, Percutaneous Approach (ICD-10-PCS; 2018-03-09)
PROC: 3E0234Z Introduction of Serum, Toxoid and Vaccine into Muscle, Percutaneous Approach (ICD-10-PCS; 2018-03-10)
DX: O80 Encounter for full-term uncomplicated delivery (principal); D62 Acute posthemorrhagic anemia; Z37.0 Single live birth; Z3A.39 39 weeks gestation of pregnancy; Z23 Encounter for immunization
CPT/HCPCS: 36415; 85014; 85018; 85027; 86592; 86850; 86900; 86901; G0378; J2590; J7120

== ENCOUNTER 2020-08-07 18:59 | Outpatient (CLI) | payer BC, OTHER ==
[2020-08-07] MEDS ORDERED: LACTATED RINGERS 1,000 ML ONE (21:28)
[2020-08-07] MEDS ORDERED: LACTATED RINGERS 1,000 ML IV SCH (22:15)
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
[2020-08-07] MEDS ORDERED: TERBUTALINE 1 MG/1 ML INJ SUB-Q ONE (23:13)
[2020-08-07] MEDS ORDERED: ACETAMINOPHEN 500 MG TAB PO ONE (23:25)
[2020-08-07 23:38] VITALS: BP 110/56
[2020-08-08 00:07] LABS: Bacteria,Urine 1+ /HPF (Negative); Bilirubin,Urine NEG (Negative); Blood,Urine NEG (Negative); Color,Urine Colorless (Yellow); Protein,Urine <15 mg/dL mg/dL (Negative); Urobilinogen,Urine < 2.0 mg/dL (<2.0)
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
[2020-08-08 00:09] LABS: WBC,Urine < 1.0 /HPF (0.0-6.0)
== END 2020-08-08 00:36 | disposition home or self-care (01) ==
LOC: TRG 18:59 → APU 19:05 → TRG 08-08 00:36
PROVIDERS: ATTEND Obstetrics & Gynecology
DX: O26.893 Other specified pregnancy related conditions, third trimester (principal); Z3A.35 35 weeks gestation of pregnancy; V49.60XA Unspecified car occupant injured in collision with unspecified motor vehicles in traffic accident, initial encounter; Y93.89 Activity, other specified; Y92.89 Other specified places as the place of occurrence of the external cause; Y99.8 Other external cause status
CPT/HCPCS: 59025; 76815; 76819; 81001; 85460; 96360; 96361; 96372; J3105; J7120

== ENCOUNTER 2020-08-14 14:35 | Outpatient (CLI) | payer BC, OTHER ==
[2020-08-14] MEDS ORDERED: LACTATED RINGERS 1,000 ML IV ONE (14:59)
[2020-08-14 15:07] VITALS: BP 111/78
[2020-08-14 15:35] LABS: Bilirubin,Urine NEG (Negative); Blood,Urine NEG (Negative); Color,Urine Colorless (Yellow); Protein,Urine <15 mg/dL mg/dL (Negative); Urobilinogen,Urine < 2.0 mg/dL (<2.0); WBC,Urine < 1.0 /HPF (0.0-6.0)
== END 2020-08-14 15:45 | disposition home or self-care (01) ==
LOC: TRG 14:35 → APU 14:37 → TRG 15:45
PROVIDERS: ATTEND Obstetrics & Gynecology
DX: Z34.93 Encounter for supervision of normal pregnancy, unspecified, third trimester (principal); Z3A.36 36 weeks gestation of pregnancy
CPT/HCPCS: 59025; 81001

== ENCOUNTER 2020-08-19 11:14 | Inpatient (IN) | payer BC ==
[2020-08-19] MEDS ORDERED: CARBOPROST TROMETHAMINE 250 MCG/1 ML INJ IM PRN (11:32)
[2020-08-19] MEDS ORDERED: METHYLERGONOVINE MALEATE 0.2 MG/ML VIAL IM PRN (11:32)
[2020-08-19] MEDS ORDERED: miSOPROStol 200 MCG TAB PR PRN (11:32)
[2020-08-19] MEDS ORDERED: MINERAL OIL 30 ML ORAL LIQD PO PRN (11:32)
[2020-08-19] MEDS ORDERED: OXYTOCIN 10 UNIT/1 ML INJ IM PRN (11:32)
[2020-08-19] MEDS ORDERED: LOPERAMIDE 2 MG CAP PO PRN (11:32)
[2020-08-19] MEDS ORDERED: LIDOCAINE (2%) 20 MG/1 ML VIAL 20 ML MDV INFILTRATI ONE (11:32)
[2020-08-19] MEDS ORDERED: ONDANSETRON 4 MG/2 ML INJ IV PRN (11:32)
[2020-08-19] MEDS ORDERED: BUTORPHANOL 2 MG/1 ML INJ IV PRN (11:32)
[2020-08-19] MEDS ORDERED: fentaNYL 100 MCG/2 ML INJ IV PRN (11:32)
[2020-08-19] MEDS ORDERED: ePHEDrine SULFATE 50 MG/1 ML INJ IV PRN ×2 (11:32→14:14)
[2020-08-19] MEDS ORDERED: ACETAMINOPHEN 325 MG TAB PO PRN (11:32)
[2020-08-19] MEDS ORDERED: TERBUTALINE 1 MG/1 ML INJ SUB-Q PRN (11:32)
[2020-08-19] MEDS ORDERED: LACTATED RINGERS 1,000 ML IV SCH (11:45)
--- NOTE | 2020-08-19 11:56 | History and Physical Report ---
<SANJANAALBERTO - Last Filed: 08/19/20 11:52> History of Present Illness Date of examination: 08/19/20 Date of admission: 08/19/20 11:14 Chief complaint: leaking fluid; fern + in office Past History - Obstetrical History Expected Date of Delivery: 09/09/20 Actual Gestation: 37 Week(s) 0 Day(s) : 4 Para: 3 Hx # Term Pregnancies: 2 Number of Pregnancies: 1 (del @ 36w) Spontaneous Abortions: 0 Induced : 0 Number of Living Children: 3 Medications and Allergies Allergies Allergy/AdvReac Type Severity Reaction Status Date / Time No Known Allergies Allergy Verified 08/14/20 14:59 Home Medications Medication Instructions Recorded Confirmed Last Taken Type Vit-Fe Fumar-FA [ 1 tab PO QDAY 03/09/18 03/09/18 03/08/18 History Vitamin] Ibuprofen [Motrin 800 MG tab] 800 mg PO Q8HR PRN #30 tablet 03/10/18 Unknown Rx Lidocain2.5%/Prilocai2.5% [Emla] 5 gm TP ONCE PRN #1 tube 03/10/18 Unknown Rx Active Meds: Active Medications Acetaminophen (Acetaminophen 325 Mg Tab) 650 mg PO Q4H PRN PRN Reason: Pain, Mild (1-3) Butorphanol Tartrate (Butorphanol 2 Mg/1 Ml Inj) 1 mg IV Q2H PRN PRN Reason: Pain, Moderate(4-6) LABOR PAIN Carboprost Tromethamine (Carboprost Tromethamine 250 Mcg/1 Ml Inj) 250 mcg IM ONCE PRN PRN Reason: Uterine Bleeding Ephedrine Sulfate (Ephedrine Sulfate 50 Mg/1 Ml Inj) 10 mg IV Q2M PRN PRN Reason: Hypotension Fentanyl (Fentanyl 100 Mcg/2 Ml Inj) 100 mcg IV Q2H PRN PRN Reason: Pain,Severe (7-10) LABOR PAIN Oxytocin/Sodium Chloride (Pitocin/Ns 30 Unit/500ml) 30 units in 500 mls @ 4 mls/hr IV TITR HOLLI; Protocol Lactated Ringer's (Lactated Ringers) 1,000 mls @ 125 mls/hr IV DIRECT HOLLI Oxytocin/Sodium Chloride (Pitocin/Ns 30 Unit/500ml) 30 units in 500 mls @ 40 mls/hr IV TITR HOLLI; Protocol Loperamide HCl (Loperamide 2 Mg Cap) 2 mg PO ONCE PRN PRN Reason: give with Hemabate Methylergonovine Maleate (Methylergonovine Maleate 0.2 Mg/Ml Vial) 0.2 mg IM ONCE PRN PRN Reason: Uterine Bleeding Mineral Oil (Mineral Oil 30 Ml Oral Liqd) 30 ml PO QHS PRN PRN Reason: Constipation Misoprostol (Misoprostol 200 Mcg Tab) 800 mcg NJ ONCE PRN PRN Reason: Uterine Bleeding Ondansetron HCl (Ondansetron 4 Mg/2 Ml Inj) 4 mg IV Q8H PRN PRN Reason: Nausea And Vomiting Oxytocin (Oxytocin 10 Unit/1 Ml Inj) 10 unit IM ONCE PRN PRN Reason: Uterine Bleeding Terbutaline Sulfate (Terbutaline 1 Mg/1 Ml Inj) 0.25 mg SUB-Q ONCE PRN PRN Reason: Hyperstimulation/Hypertonicity Review of Systems All systems: negative - Vital Signs Vital signs: Vital Signs Temp Pulse Resp BP Pulse Ox 99.1 F 108 H 20 120/79 99 08/19/20 11:30 08/19/20 11:30 08/19/20 11:30 08/19/20 11:30 08/19/20 11:30 Temp Pulse Resp BP Pulse Ox 99.1 F 104 H 20 120/79 99 08/19/20 11:30 08/19/20 11:49 08/19/20 11:30 08/19/20 11:34 08/19/20 11:49 - Physical Exam Breasts: Positive: deferred Cardiovascular: Regular rate, Normal S1, Normal S2 Lungs: Positive: Clear to auscultation Abdomen: Positive: normal appearance, soft, normal bowel sounds. Negative: distention, tenderness Genitourinary (Female): Positive: normal external genitalia (clear fluid) Vulva: both: normal Vagina: Positive: normal moisture. Negative: discharge Cervix: Negative: lesion, discharge Uterus: Positive: normal size, normal contour Adnexa: both: normal Anus/Rectum: Positive: normal perianal skin, heme negative. Negative: rectal m ass, hemorrhoids Extremities: Positive: normal Deep Tendon Reflex Grade: Normal +2 - Obstetrical FHR: category 1 Uterine Contraction Monitor Mode: External Cervical Dilatation: 3 Cervical Effacement Percentage: 50 station: -2 Uterine Contraction Frequency (min): q3-5 Uterine Contraction Pattern: Regular Uterine Tone Measurement Phase: Resting Uterine Contraction Intensity: Mild Results All other labs normal. Assessment and Plan 29yo @ 37w with SROM early labor GBS negative. Pt has a hx of PTD and had been on 17-OHP until last week. All orders in EMR. <ADRIENNE SAVAGE - Last Filed: 08/19/20 14:55> History of Present Illness Date of admission: 08/19/20 11:14 History of present illness: EDC Confirmation: 09/09/2020 Past History : 4 Term Births: 3 Premature Births: 0 Living Children: 3 Para: 3 Mult. Births: 0 Prev : 0 Prev. attempt? 0 Aborta: 0 Elect. Ab: 0 Spont. Ab: 0 Ectopics: 0 # 1 Delivery date: 06/17/2011 Weeks Gestation: 38 Delivery type: Vaginal Anesthesia type: epidural Delivery location: [facility] Sex: female weight: 8.25 Comments: none # 2 Delivery date: 02/27/2013 Weeks Gestation: 36 Delivery type: Vaginal Anesthesia type: epidural Delivery location: [facility] Infant Sex: female weight: 611 Comments: # 3 Delivery date: 03/09/2018 Weeks Gestation: term labor: no Delivery type: Delivery location: [facility] Infant Sex: Male weight: 9 Past Medical History: Reviewed history from 11/30/2016 and no changes required: MVP Anxiety Past Surgical History: Reviewed history from 11/03/2010 and no changes required: positive, [id number],10yo,14yo Past Medical History Anesthesia Complications: negative Anemia: negative Autoimmune Disorder: negative Bleeding Disorder: negative Blood Transfusions: negative Breast Disease: negative Diabetes: negative Heart Disease: negative Hypertension: negative Hepatitis/Liver Disease: negative Kidney Disease/UTI: negative Neurologic/Epilepsy/Migraines: negative Phlebitis/Varicosities: negative Psychiatric: negative Pulmonary Disease/Asthma: negative Thyroid Disease: negative Hospitalizations: negative Surgery (Non-tailor women's garment alteration): positive, [id number],14yo Abnormal PAP: negative ARSENIO Exposure: negative Infertility: negative Uterine Anomaly: negative Uterine Surgery (not C/S): negative Other Gynecologic Problems: negative Social Hx: Patient is Smoking History: Patient has never smoked. Infection History Hx of STD: none HIV Risk Eval: no Hepatitis B Risk Eval: low risk Personal hx. of genital herpes: no Partner hx. of genital herpes: no Rash, Viral, or Febrile illness since last LMP? no Genetic History Congenital Heart Defect: Mom: no Dad: no Gudelia Disease: Mom: no Dad: no Thalassemia Mom: no Dad: no Neural Tube Defect Mom: no Dad: no Down's Syndrome Mom: no Dad: no Samuel-Sachs Mom: no Dad: no Sickle Cell Disease/Trait Mom: no Dad: no Hemophilia Mom: no Dad: no Muscular Dystrophy Mom: no Dad: no Cystic Fibrosis Mom: no Dad: no Alli Chorea Mom: no Dad: no Mental Retardation Mom: no Dad: no Fragile X Mom: no Dad: no Other Genetic/Chromosomal Disorder Mom: no Dad: no Child w/other defect Mom: no Dad: no Other: brother had cleft palate Comments/Counseling: Brother cleft lip/palet Enviromental Exposures Xray Exposure: no Medication, drug, or alcohol use since LMP: no Chemical/Other Exposure: no Occupational Exposure to Children: none Current Allergies (reviewed today): CODEINE (Critical) Past History Past Medical History: other (see HPI) Past Surgical History: other (see HPI) [employer] History: other (see HPI) Family/Genetic History: other (see HPi) Social history: no significant social history, Medications and Allergies Active Meds: Active Medications Acetaminophen (Acetaminophen 325 Mg Tab) 650 mg PO Q4H PRN PRN Reason: Pain, Mild (1-3) Butorphanol Tartrate (Butorphanol 2 Mg/1 Ml Inj) 1 mg IV Q2H PRN PRN Reason: Pain, Moderate(4-6) LABOR PAIN Carboprost Tromethamine (Carboprost Tromethamine 250 Mcg/1 Ml Inj) 250 mcg IM ONCE PRN PRN Reason: Uterine Bleeding Ephedrine Sulfate (Ephedrine Sulfate 50 Mg/1 Ml Inj) 10 mg IV Q2M PRN PRN Reason: Hypotension Fentanyl (Fentanyl 100 Mcg/2 Ml Inj) 100 mcg IV Q2H PRN PRN Reason: Pain,Severe (7-10) LABOR PAIN Oxytocin/Sodium Chloride (Pitocin/Ns 30 Unit/500ml) 30 units in 500 mls @ 4 mls /hr IV TITR HOLLI; Protocol Lactated Ringer's (Lactated Ringers) 1,000 mls @ 125 mls/hr IV DIRECT HOLLI Oxytocin/Sodium Chloride (Pitocin/Ns 30 Unit/500ml) 30 units in 500 mls @ 40 mls/hr IV TITR HOLLI; Protocol Loperamide HCl (Loperamide 2 Mg Cap) 2 mg PO ONCE PRN PRN Reason: give with Hemabate Methylergonovine Maleate (Methylergonovine Maleate 0.2 Mg/Ml Vial) 0.2 mg IM ONCE PRN PRN Reason: Uterine Bleeding Mineral Oil (Mineral Oil 30 Ml Oral Liqd) 30 ml PO QHS PRN PRN Reason: Constipation Misoprostol (Misoprostol 200 Mcg Tab) 800 mcg NJ ONCE PRN PRN Reason: Uterine Bleeding Ondansetron HCl (Ondansetron 4 Mg/2 Ml Inj) 4 mg IV Q8H PRN PRN Reason: Nausea And Vomiting Oxytocin (Oxytocin 10 Unit/1 Ml Inj) 10 unit IM ONCE PRN PRN Reason: Uterine Bleeding Terbutaline Sulfate (Terbutaline 1 Mg/1 Ml Inj) 0.25 mg SUB-Q ONCE PRN PRN Reason: Hyperstimulation/Hypertonicity - Vital Signs Vital signs: Vital Signs Temp Pulse Resp BP Pulse Ox 99.1 F 108 H 20 120/79 99 08/19/20 11:30 08/19/20 11:30 08/19/20 11:30 08/19/20 11:30 08/19/20 11:30 Temp Pulse Resp BP Pulse Ox 99.1 F 102 H 20 120/79 98 08/19/20 11:30 08/19/20 12:19 08/19/20 11:30 08/19/20 11:34 08/19/20 12:19 Results Result Diagrams: 08/19/20 12:00 All other labs normal. Assessment and Plan - Patient Problems (1) 37 weeks gestation of Current Visit: Yes Status: Acute (2) Spontaneous rupture of membranes Current Visit: Yes Status: Acute
[2020-08-19] MEDS ORDERED: OXYTOCIN DRIP 30 UNITS/500 ML BAG IV SCH ×2 (12:00)
[2020-08-19 12:30] LABS: Hematocrit 30.3 % (30.3-42.9); Hemoglobin 9.8 gm/dl (10.1-14.3); Mean Corpuscular HGB Conc 32 % (30-34); Mean Corpuscular Volume 81 fl (79-97); Platelet Count 283 K/mm3 (140-440); Red Blood Count 3.75 M/mm3 (3.65-5.03); Red Cell Distribution Width 14.2 % (13.2-15.2)
[2020-08-19] MEDS ORDERED: NALOXONE 2 MG/2 ML INJ IV PRN (14:14)
--- NOTE | 2020-08-19 14:14 | Anesthesia Consultation ---
Anesthesia Consult and Med Hx Date of service: 08/19/20 - Airway Anesthetic Teeth Evaluation: Good ROM Head & Neck: Adequate Mental/Hyoid Distance: Adequate Mallampati Class: Class II Intubation Access Assessment: Probably Good - Pulmonary Exam CTA: Yes - Cardiac Exam Cardiac Exam: RRR - Pre-Operative Health Status ASA Pre-Surgery Classification: ASA2 Proposed Anesthetic Plan: Epidural - Pulmonary Hx Smoking: No Hx Asthma: No COPD: No Hx Pneumonia: No - Cardiovascular System Hx Hypertension: No Hx Cardia Arrhythmia: No - Central Nervous System Hx Neuromuscular Disorder: No Hx Seizures: No Hx Psychiatric Problems: No - Endocrine Hx Renal Disease: No Hx End Stage Renal Disease: No Hx Hypothyroidism: No Hx Hyperthyroidism: No - Hematic Hx Anemia: No Hx Sickle Cell Disease: No - Other Systems Hx Alcohol Use: No
--- NOTE | 2020-08-19 14:34 | Progress Note ---
Labor Epidural - Labor Epidural Start Time: 14:25 Stop Time: 14:31 Performed by:: ROLANDA LONDON Procedure: Patient is requesting epidural for labor pain. H&P, and labs reviewed. Procedure explained, questions answered, consent obtained. Patient in sitting position with blood pressure cuff and pulse ox on and working. Timeout performed immediately before start of procedure. Sterile chlorahexadine 0.5% prep/drape. 3 mL 1% lidocaine skin wheal at L[3]-L[4]. 18-gauge Woisiotead epidural needle advanced to [id number] with saline at [7] cm. Epidural catheter advanced to [12] cm, negative aspiration for blood and csf, negative test dose 3 ml 1.5% lidocaine with epinephrine. Epidural dexmedetomidine [30] mcg administered. Sterile steri-strips and tegaderm applied, followed by tape reinforcement. Patient tolerated procedure well. Rajan RIOS
[2020-08-19] MEDS ORDERED: fentaNYL-BUPIV 2 MCG/ML-0.125% 200 MCG/100 ML BAG EPIDURAL SCH (15:00)
--- NOTE | 2020-08-19 16:56 | Progress Note ---
Assessment and Plan Will continue pitocin per protocol Anticipate delivery Subjective - Subjective Date of service: 08/19/20 (comfortable with epidural) Principal diagnosis: [id number]@[id number] SROM Patient reports: movement normal Objective - Vital Signs Vital Signs: Vital Signs - 12hr 08/19/20 08/19/20 08/19/20 11:30 11:33 11:34 Temperature 99.1 F Pulse Rate 108 H 120 H 102 H Respiratory 20 Rate Blood Pressure 120/79 Blood Pressure 120/79 [Left] O2 Sat by Pulse 99 100 Oximetry 08/19/20 08/19/20 08/19/20 11:38 11:44 11:49 Temperature Pulse Rate 112 H 111 H 104 H Respiratory Rate Blood Pressure Blood Pressure [Left] O2 Sat by Pulse 99 98 99 Oximetry 08/19/20 08/19/20 08/19/20 11:54 11:59 12:04 Temperature Pulse Rate 99 H 108 H 95 H Respiratory Rate Blood Pressure Blood Pressure [Left] O2 Sat by Pulse 99 98 99 Oximetry 08/19/20 08/19/20 08/19/20 12:09 12:19 12:29 Temperature Pulse Rate 96 H 102 H 91 H Respiratory Rate Blood Pressure Blood Pressure [Left] O2 Sat by Pulse 99 98 98 Oximetry 08/19/20 08/19/20 08/19/20 12:39 12:44 12:49 Temperature Pulse Rate 98 H 102 H 101 H Respiratory Rate Blood Pressure Blood Pressure [Left] O2 Sat by Pulse 98 98 98 Oximetry 08/19/20 08/19/20 08/19/20 12:54 12:59 13:04 Temperature Pulse Rate 87 89 85 Respiratory Rate Blood Pressure 120/73 Blood Pressure [Left] O2 Sat by Pulse 97 98 97 Oximetry 08/19/20 08/19/20 08/19/20 13:09 13:14 13:19 Temperature Pulse Rate 84 104 H 96 H Respiratory Rate Blood Pressure Blood Pressure [Left] O2 Sat by Pulse 97 98 96 Oximetry 08/19/20 08/19/20 08/19/20 13:24 13:25 13:29 Temperature Pulse Rate 104 H 91 H 85 Respiratory Rate Blood Pressure 108/75 Blood Pressure [Left] O2 Sat by Pulse 97 96 Oximetry 08/19/20 08/19/20 08/19/20 13:34 13:39 13:44 Temperature Pulse Rate 85 85 92 H Respiratory Rate Blood Pressure Blood Pressure [Left] O2 Sat by Pulse 97 97 96 Oximetry 08/19/20 08/19/20 08/19/20 13:49 13:52 13:54 Temperature Pulse Rate 86 93 H 90 Respiratory Rate Blood Pressure 114/71 Blood Pressure [Left] O2 Sat by Pulse 97 92 97 Oximetry 08/19/20 08/19/20 08/19/20 13:59 14:04 14:09 Temperature Pulse Rate 88 87 91 H Respiratory Rate Blood Pressure Blood Pressure [Left] O2 Sat by Pulse 98 98 98 Oximetry 08/19/20 08/19/20 08/19/20 14:10 14:14 14:19 Temperature 98.4 F Pulse Rate 86 94 H 96 H Respiratory 16 Rate Blood Pressure Blood Pressure 144/71 [Left] O2 Sat by Pulse 98 98 99 Oximetry 08/19/20 08/19/20 08/19/20 14:24 14:25 14:28 Temperature Pulse Rate 101 H 110 H 104 H Respiratory Rate Blood Pressure 135/74 123/60 Blood Pressure [Left] O2 Sat by Pulse 98 Oximetry 08/19/20 08/19/20 08/19/20 14:29 14:31 14:34 Temperature Pulse Rate 111 H 127 H 109 H Respiratory Rate Blood Pressure 129/68 126/62 Blood Pressure [Left] O2 Sat by Pulse 97 96 Oximetry 08/19/20 08/19/20 08/19/20 14:36 14:37 14:39 Temperature Pulse Rate 112 H 95 H 96 H Respiratory Rate Blood Pressure 126/75 Blood Pressure [Left] O2 Sat by Pulse 91 97 Oximetry 08/19/20 08/19/20 08/19/20 14:40 14:43 14:44 Temperature Pulse Rate 83 89 91 H Respiratory Rate Blood Pressure 113/70 123/70 Blood Pressure [Left] O2 Sat by Pulse 98 Oximetry 08/19/20 08/19/20 08/19/20 14:46 14:49 14:54 Temperature Pulse Rate 93 H 91 H 94 H Respiratory Rate Blood Pressure 114/68 121/74 Blood Pressure [Left] O2 Sat by Pulse 97 98 Oximetry 08/19/20 08/19/20 08/19/20 14:59 15:04 15:09 Temperature Pulse Rate 87 96 H 93 H Respiratory Rate Blood Pressure Blood Pressure [Left] O2 Sat by Pulse 97 98 98 Oximetry 08/19/20 08/19/20 08/19/20 15:14 15:19 15:23 Temperature Pulse Rate 91 H 88 84 Respiratory Rate Blood Pressure 116/71 Blood Pressure [Left] O2 Sat by Pulse 99 99 Oximetry 08/19/20 08/19/20 08/19/20 15:24 15:29 15:34 Temperature Pulse Rate 87 80 90 Respiratory Rate Blood Pressure Blood Pressure [Left] O2 Sat by Pulse 98 98 99 Oximetry 08/19/20 08/19/20 08/19/20 15:39 15:44 15:49 Temperature Pulse Rate 81 83 89 Respiratory Rate Blood Pressure Blood Pressure [Left] O2 Sat by Pulse 99 99 99 Oximetry 08/19/20 08/19/20 08/19/20 15:53 15:54 15:59 Temperature Pulse Rate 76 82 84 Respiratory Rate Blood Pressure 125/69 Blood Pressure [Left] O2 Sat by Pulse 99 100 Oximetry 08/19/20 08/19/20 08/19/20 16:04 16:09 16:14 Temperature Pulse Rate 94 H 99 H 85 Respiratory Rate Blood Pressure Blood Pressure [Left] O2 Sat by Pulse 99 99 99 Oximetry 08/19/20 08/19/20 08/19/20 16:19 16:22 16:24 Temperature Pulse Rate 94 H 91 H 97 H Respiratory Rate Blood Pressure 120/71 Blood Pressure [Left] O2 Sat by Pulse 100 99 Oximetry 08/19/20 08/19/20 08/19/20 16:29 16:34 16:39 Temperature Pulse Rate 88 92 H 94 H Respiratory Rate Blood Pressure Blood Pressure [Left] O2 Sat by Pulse 100 100 100 Oximetry 08/19/20 08/19/20 16:44 16:49 Temperature Pulse Rate 101 H 100 H Respiratory Rate Blood Pressure Blood Pressure [Left] O2 Sat by Pulse 99 100 Oximetry - Exam Breasts: deferred Cardiovascular: Regular rate Lungs: Normal air movement Abdomen: Present: normal appearance, soft. Absent: distention, tenderness Uterus: Present: normal FHR: auscultation normal, category 1 Uterine Contraction Monitor Mode: Internal Cervical Dilatation: 5 (ISE/IUPC placed) Cervical Effacement Percentage: 70 station: -1 Uterine Contraction Pattern: Regular Uterine Tone Measurement Phase: Resting Uterine Contraction Intensity: Moderate Extremities: normal Deep Tendon Reflex Grade: Normal +2 - Labs Labs: Abnormal Labs 08/19/20 12:00 WBC 12.4 H Hgb 9.8 L MCH 26 L Laboratory Results - last 24 hr 08/19/20 08/19/20 08/19/20 12:00 12:00 12:00 WBC 12.4 H RBC 3.75 Hgb 9.8 L Hct 30.3 MCV 81 MCH 26 L MCHC 32 RDW 14.2 Plt Count 283 Syphilis IgG Antibody Nonreactive Blood Type B POSITIVE Antibody Screen Negative
[2020-08-19] MEDS ORDERED: LANOLIN/ZINC/DIMETHICONE (LANSINOH) 7 GM TP PRN (17:57)
[2020-08-19] MEDS ORDERED: oxyCODONE /ACETAMINOPHEN 5-325MG TAB PO PRN (17:57)
[2020-08-19] MEDS ORDERED: MAGNESIUM HYDROXIDE (MOM) ORAL LIQD UDC PO PRN (17:57)
[2020-08-19] MEDS ORDERED: PROMETHAZINE 25 MG TAB PO PRN (17:57)
[2020-08-19] MEDS ORDERED: diphenhydrAMINE 25 MG CAP PO PRN (17:57)
[2020-08-19] MEDS ORDERED: WITCH HAZEL/ GLYCERIN PAD TP PRN (17:57)
[2020-08-19] MEDS ORDERED: IBUPROFEN 600 MG TAB PO SCH (18:00)
--- NOTE | 2020-08-19 18:05 | Procedure Note ---
OB Delivery Note - Delivery Date of Delivery: 08/19/20 Hands Parter: ALBERTO ALLAN Estimated blood loss: 300cc - Vaginal Delivery presentation: vertex Delivery position: OA Intrapartum events: none, PROM->1hr before delivery Delivery induction: none Delivery augmentation: pitocin Delivery monitor: internal FHT, internal uterine Route of delivery: Delivery placenta: spontaneous Delivery cord: nuchal cord (X1 reduced), 3 umbilical vessels Episiotomy: none Delivery laceration: none Anesthesia: epidural Delivery comments: JOSE present Counts correct X 2 live born male over intact perineum OA CAN X 1 easily reduced. Baby placed skin to skin on mom's abdomen. Cord clamped and cut Placenta delivered complete and intact, 3 vessel cord. Pit IVFs. Apga 8/9, EBL 300, Wgt 7-6 Rosales Mom and baby remain LDR stable - Infant A at 1 minute: 8 at 5 minutes: 9 Gender: Male (wgt 7-6 Rosales)
[2020-08-19] MEDS: IBUPROFEN 800 MG TAB PO SCH (18:28)
[2020-08-20] MEDS: IBUPROFEN 800 MG TAB PO SCH ×4 (00:31→22:59)
[2020-08-20] MEDS ORDERED: TETANUS,DIPH,PERTUSS(ACELL) VACCINE 0.5 ML SYRINGE IM ONE (06:00)
[2020-08-20 06:28] LABS: Hemoglobin 9.8 gm/dl (10.1-14.3)
--- NOTE | 2020-08-20 06:55 | Progress Note ---
Assessment and Plan - Patient Problems (1) Normal spontaneous vaginal delivery Onset Date: ~08/19/20 Current Visit: No Status: Acute Plan to address problem: Pt and resting in room. Baby remains in NICU for monitoring and evaluation. VSS FF below umb Lochia small Perineum intact H&H 11/06 stable; anemia chronic. Doing well s/p vag delivery. P: po iron added to orders. Pt desires poss d/c tonight or tomorrow. Will place d/c on chart, pending NBs situation. Subjective - Subjective Date of service: 08/20/20 (pt resting) Principal diagnosis: Day#1 s/p Patient reports: appetite normal, voiding normally, pain well controlled, ambulating normally : in NICU Objective - Vital Signs Latest vital signs: Vital Signs Temp Pulse Resp BP BP Pulse Ox 08/20/20 06:08 18 08/20/20 01:43 98.2 F 92 H 18 100/66 98 08/20/20 00:31 18 08/19/20 19:15 98.4 F 08/19/20 19:05 96 H 125/78 08/19/20 19:03 84 99 08/19/20 19:02 93 H 94 08/19/20 18:58 80 99 08/19/20 18:53 95 H 98 08/19/20 18:50 82 120/76 08/19/20 18:48 81 99 08/19/20 18:43 89 99 08/19/20 18:42 88 92 08/19/20 18:38 96 H 97 08/19/20 18:35 85 122/85 94 08/19/20 18:33 92 H 97 08/19/20 18:29 95 H 92 08/19/20 18:28 91 H 96 08/19/20 18:23 90 97 08/19/20 18:20 91 H 126/85 08/19/20 18:18 87 95 08/19/20 18:17 94 H 90 08/19/20 18:13 84 99 08/19/20 18:09 83 88 08/19/20 18:08 104 H 99 08/19/20 18:05 88 123/77 08/19/20 18:03 90 94 08/19/20 17:58 100 H 97 08/19/20 17:53 95 H 97 08/19/20 17:48 90 08/19/20 17:47 94 H 100/63 08/19/20 17:46 97 H 91/67 08/19/20 17:29 91 H 99 08/19/20 17:24 90 100 08/19/20 17:22 92 H 119/66 08/19/20 17:19 97 H 100 08/19/20 17:14 90 100 08/19/20 17:09 97 H 100 08/19/20 17:04 98 H 100 08/19/20 16:59 98 H 100 08/19/20 16:54 95 H 100 08/19/20 16:53 98 H 119/58 08/19/20 16:49 100 H 100 08/19/20 16:44 101 H 99 08/19/20 16:39 94 H 100 08/19/20 16:34 92 H 100 08/19/20 16:29 88 100 08/19/20 16:24 97 H 99 08/19/20 16:22 91 H 120/71 08/19/20 16:19 94 H 100 08/19/20 16:14 85 99 08/19/20 16:09 99 H 99 08/19/20 16:04 94 H 99 08/19/20 15:59 84 100 08/19/20 15:54 82 99 08/19/20 15:53 76 125/69 08/19/20 15:49 89 99 08/19/20 15:44 83 99 08/19/20 15:39 81 99 08/19/20 15:34 90 99 08/19/20 15:29 80 98 08/19/20 15:24 87 98 08/19/20 15:23 84 116/71 08/19/20 15:19 88 99 08/19/20 15:14 91 H 99 08/19/20 15:09 93 H 98 08/19/20 15:04 96 H 98 08/19/20 14:59 87 97 08/19/20 14:54 94 H 98 08/19/20 14:49 91 H 121/74 97 08/19/20 14:46 93 H 114/68 08/19/20 14:44 91 H 98 08/19/20 14:43 89 123/70 08/19/20 14:40 83 113/70 08/19/20 14:39 96 H 97 07/ 14:37 95 H 126/75 07// 14:36 112 H 91 07/ 14:34 109 H 126/62 96 07/ 14:31 127 H 129/68 07/ 14:29 111 H 97 07/ 14:28 104 H 123/60 07// 14:25 110 H 135/74 07 14:24 101 H 98 07/ 14:19 96 H 99 07/ 14:14 94 H 98 07 14:10 98.4 F 86 16 144/71 98 07/ 14:09 91 H 98 07 14:04 87 98 07/ 13:59 88 98 07/ 13:54 90 114/71 97 07/ 13:52 93 H 92 08/19/20 13:49 86 97 07/ 13:44 92 H 96 08/19/20 13:39 85 97 07/ 13:34 85 97 07/ 13:29 85 96 07/ 13:25 91 H 108/75 07 13:24 104 H 97 07/ 13:19 96 H 96 08/19/20 13:14 104 H 98 07/ 13:09 84 97 07/ 13:04 85 97 07// 12:59 89 98 07// 12:54 87 120/73 97 07/ 12:49 101 H 98 07//21 12:44 102 H 98 07/13/21 12:39 98 H 98 07/13/21 12:29 91 H 98 07/13/21 12:19 102 H 98 07/13/21 12:09 96 H 99 07//21 12:04 95 H 99 07//21 11:59 108 H 98 07//21 11:54 99 H 99 07/13/21 11:49 104 H 99 07/13/21 11:44 111 H 98 07/13/21 11:38 112 H 99 07/13/21 11:34 102 H 120/79 07/13/21 11:33 120 H 100 07/13/21 11:30 99.1 F 108 H 20 120/79 99 Intake and Output 08/19/20 08/19/20 08/20/20 14:59 22:59 06:59 Intake Total 1.733 29.233 120 Output Total 1600 800 Balance 1.733 -1570.767 -680 Intake: IV 1.733 29.233 PITOCin/NS 30 UNIT/500ML 1.733 29.233 30 units In 500 ml @ 4 mls/hr IV TITR HOLLI Rx#: [id number] Oral 120 Output: Urine 1600 800 Indwelling Catheter 1600 Void 800 Other: Total, Intake Amount 120 Total, Output Amount 1600 800 Weight 157 lb Estimated Blood Loss 300 Patient Weight 08/20/20 06:59 Weight 157 lb - Exam Breasts: Present: normal, Cardiovascular: Present: Regular rate Lungs: Present: Normal air movement Abdomen: Present: normal appearance, soft, normal bowel sounds Uterus: Present: normal, fundal height below umbilicus Extremities: Present: normal Deep Tendon Reflex Grade: Normal +2 Incision: Present: normal, dry, intact - Labs Labs: Abnormal lab results 08/19/20 08/20/20 Range/Units 12:00 05:57 WBC 12.4 H (4.5-11.0) K/mm3 Hgb 9.8 L 9.8 L (10.1-14.3) gm/dl Hct 30.0 L (30.3-42.9) % MCH 26 L (28-32) pg
[2020-08-20] MEDS: FERROUS SULFATE 325 MG TAB PO SCH ×2 (10:40→22:59)
--- NOTE | 2020-08-20 12:06 | Discharge Summary ---
Providers - Providers Date of Admission: 08/19/20 11:14 Date of discharge: 08/21/20 (pt req d/c for this evening or tomorrow morning) Attending physician: EVELINE TRAN Primary care physician: VIRAJ TYSON Hospitalization Reason for admission: rupture of membranes, IUP at term Delivery: Episiotomy: none Laceration: none Incision: normal Other procedures: none complications: none Discharge diagnosis: IUP at term delivered [place] baby: male (NICU) Hospital course: uncomplicated vaginal delivery Pt resting after visit NICU to see her son. Wanted option to go home today or tomorrow Condition at discharge: Good Disposition: DC-[id number] TO HOME OR SELFCARE - Discharge Diagnoses (1) Normal spontaneous vaginal delivery Status: Acute Comment: RTO 4 weeks PP Care Plan - Discharge Medications Prescriptions: Docusate Sodium [Colace] 100 mg PO BID PRN #60 capsule PRN Reason: Constipation Lidocain2.5%/Prilocai2.5% [Emla] 5 gm TP PRN #1 tube Ferrous Sulfate [Feosol 325 MG tab] 325 mg PO BID #60 tablet Ibuprofen [Motrin 800 MG tab] 800 mg PO TID PRN #30 tablet PRN Reason: Pain - Provider Discharge Summary Activity: routine, no sex for 6 weeks, no heavy lifting 4 weeks, no strenuous exercise Diet: routine Instructions: routine Additional instructions: [] Smoking cessation referral if applicable(refer to patient education folder for contact #) [] Refer to [facility] Booklet Call your doctor immediately for: * Fever > 100.5 * Heavy vaginal bleeding ( >1 pad per hour) * Severe persistent headache * Shortness of breath * Reddened, hot, painful area to leg or breast * Drainage or odor from incision. * Keep incision clean and dry at all times and follow doctor's instructions regarding bathing/showering - Follow up plan Follow up: VIRAJ TYSON MD [Primary Care Provider] - 09/18/20 (Call me with any concerns. Take medications as prescribed. )
--- NOTE | 2020-08-20 21:34 | Post Anesthesia Evaluation ---
- Post Anesthesia Evaluation Patient Participated: Yes Airway Patent: Yes Stable Respiratory Function: Yes Nausea/Vomiting: No Temp > 96.8F: Yes Pain Manageable: Yes Adequeate Hydration: Yes Anesthesia Complications: No Block Receding Appropriately: Yes
[2020-08-21 08:54] VITALS: BP 113/74
== END 2020-08-21 10:26 | disposition home or self-care (01) | DRG 807 ==
LOC: LD 11:14 → OB 20:14
PROVIDERS: ADMIT Obstetrics & Gynecology; ATTEND Obstetrics & Gynecology
PROC: 10E0XZZ Delivery of Products of Conception, External Approach (ICD-10-PCS; principal; 2020-08-19)
PROC: 3E0R3BZ Introduction of Anesthetic Agent into Spinal Canal, Percutaneous Approach (ICD-10-PCS; 2020-08-19)
PROC: 00HU33Z Insertion of Infusion Device into Spinal Canal, Percutaneous Approach (ICD-10-PCS; 2020-08-19)
PROC: 3E0234Z Introduction of Serum, Toxoid and Vaccine into Muscle, Percutaneous Approach (ICD-10-PCS; 2020-08-20)
DX: O42.92 Full-term premature rupture of membranes, unspecified as to length of time between rupture and onset of labor (principal); Z37.0 Single live birth; O69.1XX0 Labor and delivery complicated by cord around neck, with compression, not applicable or unspecified; Z3A.37 37 weeks gestation of pregnancy; Z79.899 Other long term (current) drug therapy
CPT/HCPCS: 36415; 85014; 85018; 85027; 86592; 86850; 86900; 86901; 90715; G0378; J2590; J7120